=== PATIENT | female | born 1990 | race Caucasian/White ===

== ENCOUNTER 2021-03-25 08:55 | Emergency (ER) | payer SELFPAY ==
[2021-03-25] MEDS ORDERED: Sodium Chloride 0.9% 2.5 ML Syringe FLUSH PRN (09:21)
[2021-03-25] MEDS ORDERED: Sodium Chloride 0.9% 10 ML Syringe FLUSH PRN (09:21)
[2021-03-25 10:21] LABS: BLOOD UREA NITROGEN,BUN 10 mg/dL (7.0-18.0); CARBON DIOXIDE,CO2 25.4 mmol/L (21.0-32.0); CHLORIDE,CL 103 mmol/L (98-107); GLUCOSE RANDOM 141 mg/dL (74-106); POTASSIUM,K 3.4 mmol/L (3.5-5.1); SODIUM,NA 141 mmol/L (136-145)
[2021-03-25 10:38] LABS: CORONAVIRUS COVID-19 NAA POSITIVE (NEGATIVE); INFLUENZA A NAA NEGATIVE (NEGATIVE); INFLUENZA B NAA NEGATIVE (NEGATIVE)
[2021-03-25] MEDS ORDERED: Dexamethasone 4 MG/ML SDV IVPUSH ONE (10:53)
[2021-03-25] MEDS ORDERED: Sodium Chloride 0.9% 500 ML IV SCH (11:15)
[2021-03-25] MEDS ORDERED: Heparin Sodium/0.45% NaCl 500 ML IV SCH (11:15)
[2021-03-25] MEDS: Heparin Sodium/0.45% NaCl 500 ML IV STA ×2 (11:26→13:23)
[2021-03-25] MEDS ORDERED: Iopamidol 755 MG/ML 500 ML Multipack Bottle IVPUSH STA (12:06)
[2021-03-25] MEDS ORDERED: Heparin Sodium 5,000 Units/ML Vial IVPUSH ONE (12:10)
[2021-03-25] MEDS ORDERED: Heparin Sodium/0.45% NaCl 500 ML IV STA (13:08)
[2021-03-25] MEDS ORDERED: Apixaban 5 MG Tab PO ONE (19:31)
== END 2021-03-25 20:36 | disposition home or self-care (01) ==
LOC: MW.ED 08:55
DX: U07.1 COVID-19 (principal); I26.99 Other pulmonary embolism without acute cor pulmonale; R09.02 Hypoxemia; Z86.73 Personal history of transient ischemic attack (TIA), and cerebral infarction without residual deficits; Z79.01 Long term (current) use of anticoagulants; Z79.82 Long term (current) use of aspirin
CPT/HCPCS: 0240U; 36415; 71045; 71275; 80053; 83880; 84484; 85025; 85730; 93005; 96365; 96366; 96375; 96376; 99285; A9270; J1100; J1644; J7040; Q9967

== ENCOUNTER 2021-12-30 19:24 | Emergency (ER) | payer MEDICAID, OTHER | END 2021-12-30 21:40 | disposition home or self-care (01) | LOC: MW.ED 19:24 | DX: S93.402A Sprain of unspecified ligament of left ankle, initial encounter (principal); Z98.890 Other specified postprocedural states; X50.1XXA Overexertion from prolonged static or awkward postures, initial encounter | CPT/HCPCS: 73610-26-LT; 73610-LT; 73630-26-LT; 73630-LT; 99283 ==